=== PATIENT | male | born 1955 | race Caucasian/White ===

== ENCOUNTER 2021-10-24 12:09 | Outpatient (REF) | payer MEDICARE, SELFPAY ==
[2021-10-24 13:54] LABS: Rheumatoid Factor < 15.0 IU/mL (<15.0)
[2021-10-24 14:36] LABS: Folate 6.4 ng/mL (> or = 4.0); Vitamin B12 466 pg/mL (200-900)
[2021-10-24 15:15] LABS: Erythrocyte Sedimentation Rate 6 MM/HR (0-15)
[2021-10-25 05:47] LABS: Syphilis Screen Nonreactive (Nonreactive)
[2021-10-27 05:21] LABS: Lyme Abs Screen <0.90 index
[2021-10-27 14:52] LABS: IgA 202 mg/dL (70-320); IgG 763 mg/dL (600-1540); IgM 104 mg/dL (50-300)
[2021-10-28 14:47] LABS: Anti Nuclear Antibody Screen NEGATIVE (NEGATIVE)
== END 2021-10-24 12:10 | disposition home or self-care (01) ==
LOC: HO.LAB 12:09
PROVIDERS: PCP Internal Medicine; Visit Provider Psychiatry & Neurology Neurology
DX: G93.40 Encephalopathy, unspecified (principal)
CPT/HCPCS: 36415; 82607; 82746; 82784; 85652; 86038; 86039; 86334; 86431; 86617; 86618; 86780

== ENCOUNTER 2021-11-03 11:36 | Outpatient (REF) | payer MEDICARE, SELFPAY ==
[2021-11-07 05:41] LABS: Arsenic, 24H Urine 24 mcg/L (<=80); Cadmium, 24H Urine <0.5 mcg/L (<=5.0); Lead, 24H Urine <10 mcg/L (<80); Mercury, 24H Urine <4 mcg/L (<=20)
== END 2021-11-03 11:37 | disposition home or self-care (01) ==
LOC: HO.LNP 11:36
PROVIDERS: Visit Provider Psychiatry & Neurology Neurology
DX: G93.40 Encephalopathy, unspecified (principal)
CPT/HCPCS: 82175; 82300; 83655; 83825